=== PATIENT | male | born 1995 | race Caucasian/White ===

== ENCOUNTER → 2023-04-19 15:29 | Outpatient (CLI) | payer OTHER, SELFPAY ==
--- NOTE | 2023-04-19 15:29 | DI.US.S_ITS ---
PROCEDURE: US SCROTUM INDICATIONS: TESTICULAR PAIN TECHNIQUE: Real-time scanning was performed of the scrotum and testicles, with image documentation. Color and pulse Doppler interrogation was performed of both testicles. COMPARISON: None. FINDINGS: Right: Testicle is normal in size at 4.1 x 2.4 x 2.5 cm, and homogenous in echotexture. Epididymis is normal in overall size and morphology. No hydrocele or varicoceles. Overlying scrotal skin is normal in thickness. Left: Testicle is normal in size at 3.5 x 1.8 x 3.2 cm, and homogeneous in echotexture. Epididymis is normal in overall size and morphology. No hydrocele or varicoceles. Overlying scrotal skin is normal in thickness. Doppler: Color and pulse Doppler demonstrate normal and symmetric arterial flow in both testicles. IMPRESSION: Normal testicular ultrasound. Dictated by: Jarret Wu M.D. on 04/19/2023 at 17:13 Approved by: Jarret Wu M.D. on 04/19/2023 at 17:15
== END ==
PROVIDERS: PCP Family Medicine; Referring Provider Family Medicine; Visit Provider Family Medicine
DX: N50.812 Left testicular pain (principal)
CPT/HCPCS: 76870; 93975

== ENCOUNTER → 2024-07-14 16:04 | Outpatient (CLI) | payer OTHER, SELFPAY ==
[2024-07-16 20:07] LABS: Interpretation Negative (Negative)
== END ==
PROVIDERS: PCP Family Medicine; Referring Provider Family Medicine; Visit Provider Family Medicine
DX: Z20.9 Contact with and (suspected) exposure to unspecified communicable disease (principal)
CPT/HCPCS: 36415; 83013

== ENCOUNTER 2024-12-27 18:05 | Emergency (ER) | payer OTHER, SELFPAY ==
[2024-12-27 18:12] VITALS: BP 124/75; PULSE 106; RESP 16; TEMP 36.9; O2SAT 97; BMI 22.3
--- NOTE | 2024-12-27 18:23 | EKG_ITS ---
[facility] [address], [place] [address] Test Date: 2024-12-27 Pat Name: Maurisio Cornejo Department: [facility] Room: Gender: Male Billet Driller: SINGH WALLACE : 1995 Requested By: Order Number: [id number] Reading MD: Jarad Dimas MD Measurements Intervals [place] Rate: 99 P: 65 MS: 146 QRS: 87 QRSD: 90 T: 56 QT: 344 QTc: 441 Interpretive Statements Sinus rhythm with occasional premature ventricular complexes Electronically Signed On 12-28-2024 7:52:52 PDT by Jarad Dimas MD
--- NOTE | 2024-12-27 18:35 | DI.RAD.S_ITS ---
PROCEDURE: XR CHEST 1V INDICATIONS: Chest Pain TECHNIQUE: One view of the chest was acquired. COMPARISON: [facility], , CHEST 2 VIEW, 02/02/2015, 14:52. FINDINGS: Surgical changes and devices: None. Lungs and pleura: Lungs are clear. No pleural effusions or pneumothorax. Mediastinum: Mediastinal contours appear normal. Heart size is normal. Bones and chest wall: No suspicious bony lesions. Overlying soft tissues appear unremarkable. IMPRESSION: No acute cardiopulmonary abnormality is seen. Dictated by: Galileo Epps M.D. on 12/27/2024 at 19:24 Approved by: Galileo Epps M.D. on 12/27/2024 at 19:24
[2024-12-27 18:55] LABS: Add Manual Diff / Slide Review NO; Hematocrit 41.1 % (41-53); Hemoglobin 13.8 g/dL (13.5-17.5); Lymphocytes Absolute Auto 1600 /uL (1100-4500); Mean Corpuscular HGB Conc 33.6 % (30-36); Mean Corpuscular Hemoglobin 29.3 PG (26-34); Mean Corpuscular Volume 87.0 fL (80-100); Platelet Count 200 X10^3/uL (150-400)
[2024-12-27 19:01] LABS: INR 1.2 (0.9-1.3); Prothrombin Time 13.3 SECONDS (9.4-12.5)
[2024-12-27 19:02] LABS: Alanine Aminotransferase 18 IU/L (<50); Albumin 4.9 g/dL (3.5-5.0); Albumin Globulin Ratio 1.4 (1.0-2.8); Alkaline Phosphatase 47 U/L (38-126); Blood Urea Nitrogen 16 mg/dL (9-20); Calcium 9.7 mg/dL (8.4-10.2); Carbon Dioxide 28 mmol/L (22-32); Chloride 100 mmol/L (98-107); Creatine Kinase 47 U/L (55-170); Estimated Glomerular Filt Rate > 60 mL/min (>60); Globulin 3.4 g/dL (1.7-4.1); Glucose 102 mg/dL (70-99); HEMOLYSIS < 15 (0-50); Magnesium 1.7 mg/dL (1.6-2.3); Potassium 4.0 mmol/L (3.4-5.1); Sodium 137 mmol/L (137-145); Total Protein 8.3 g/dL (6.3-8.2)
[2024-12-27 19:03] LABS: PTT Partial Thromboplastin Tim 30 SECONDS (25.1-36.5)
[2024-12-27 19:14] LABS: NT-proBNP (BNP-Adult 18+) 25 pg/mL (<125); Troponin I < 0.012 ng/mL (0.01-0.034)
[2024-12-27 19:30] VITALS: BP 118/68; PULSE 90; RESP 13; O2SAT 100
[2024-12-27 20:00] VITALS: BP 108/67; PULSE 79; RESP 11; O2SAT 99
--- NOTE | 2024-12-27 20:19 | ED_ITS ---
HPI - Arrhythmia/Palpitations General Chief Complaint: Arrhythmia/Palpitations Stated Complaint: Irregular Heart Rhythm t-14, Shocked Himself Time Seen by Provider: 12/27/24 20:19 Source: patient Mode of arrival: Ambulatory History of Present Illness HPI narrative: Patient is a 29-year-old male without any significant past medical history comes into the ED from home for evaluation palpitations, the states it has been ongoing persistent for the past several months, he also states that he was working on a light switch and had a little ?shock to his hand, this did not change any of the symptoms, he denies any actual chest pain shortness breath, states that he is not having any chest pain shortness breath fever chills nausea vomiting abdominal pain or any other GI/ symptoms. Related Data Allergies Allergy/AdvReac Type Severity Reaction Status Date / Time No Known Drug Allergies Allergy Verified 12/27/24 18:12 Review of Systems Review of Systems Narrative: General: Denies fever, chills, weight loss HEENT: Denies headache, eye drainage, eye irritation, head trauma, sore throat, voice change Cardiovascular: Positive palpitation Denies any chest pain, tachycardia Respiratory: Denies any shortness of breath, cough, wheeze, stridor GI/: Denies any abdominal pain, nausea, vomiting, diarrhea, bright red blood per rectum, melanotic stools, urinary frequency, urinary retention, dysuria, hematuria MSK: Denies any joint pain, muscle pains, swelling Skin: Denies any rashes, lesions, discoloration Neuro: Denies any headache, lightheadedness, dizziness, fainting, weakness Psych: Denies SI/HI Patient History Medical History (Updated 12/27/24 @ 20:23 by Austin Narayanan DO) Left testicular pain Varicose vein of leg Darkening of skin Family history of Marfan syndrome Acne Surgical History Anesthesia [place] teeth removed (~2014) Family History Father Hypertension PTSD (post-traumatic stress disorder) Mother History of varicose veins Sister Marfan's syndrome Gestational diabetes Diabetes mellitus Grandfather Bladder cancer Grandmother Osteoporosis Grandfather History of heart disease Grandmother Stroke Social History alcohol intake: current (2-4 servings monthly) substance use type: does not use Smoking Status: Never smoker Exam Narrative Exam Narrative: General: Cooperative, well-developed, not in acute distress HEENT: Normocephalic, atraumatic, PERRLA, normal sclera, eyelids normal Neck: Active full range of motion, atraumatic Chest: Normal to inspection, negative crepitus, no overlying erythema ecchymosis Respiratory: Normal respiratory effort, not in acute respiratory distress, clear to auscultation bilaterally negative cough, wheeze, tachypnea, rhonchi, rales Cardiology: Regular rate rhythm negative gallop, murmur, rubs GI/: No tenderness to palpation, soft, non rigid, normal to inspection, exam deferred MSK: Full active range of motion in all 4 extremities, atraumatic, no tenderness to palpation of any bony prominences Skin: No rashes or lesions noted Neuro: Alert awake oriented x3, moves all 4 extremities spontaneously, cranial nerves intact, able to answer all questions appropriately follows commands appropriately Psych: Cooperative, negative suicidal or homicidal ideations Initial Vital Signs Initial Vital Signs: Vital Signs Temperature 98.4 F 12/27/24 18:12 Pulse Rate 106 H 12/27/24 18:12 Respiratory Rate 16 12/27/24 18:12 Blood Pressure 124/75 12/27/24 18:12 Pulse Oximetry 97 12/27/24 18:12 Oxygen Delivery Method Room Air 12/27/24 18:12 Course Orders Ordered: ED Orders 12/27/24 18:18 EKG-12 Lead Stat 12/27/24 18:35 XR chest 1V Stat 12/27/24 18:42 Complete Blood Count AUTO DIFF Stat Comprehensive Metabolic Panel Stat Magnesium Stat NT-proBNP (BNP-Adult 18+) Stat PTT Partial Thromboplastin Link Stat Prothrombin Time INR Stat Troponin & CK Cardiac Panel Stat 12/27/24 20:40 Trop I [Troponin I] Stat Discontinued Medications Aspirin (Aspirin 81 Mg Chew Tab) 324 mg PO NOW ONE Stop: 12/27/24 18:36 Last Admin: 12/27/24 19:53 Dose: Not Given Documented By: DEONTE Vital Signs Vital signs: Vital Signs - 8 hr 12/27/24 18:12 Temperature 98.4 F Pulse Rate 106 H Respiratory Rate 16 Blood Pressure 124/75 Pulse Oximetry 97 Oxygen Delivery Method Room Air MDM - Arrhythmia/Palpitations Differential Diagnosis Differential diagnosis: Likely palpitations, anxiety, sinus tachycardia, artial fibrillation, artial flutter, ventricular premature beats, supraventricular tachycardia and other (Pneumonia, electrolyte abnormality) Lab Data 12/27/24 18:42 12/27/24 18:42 Labs: Lab Results 12/27/24 Range/Units 18:42 WBC 5.7 (4.5-11.0) X10^3/uL RBC 4.72 (4.5-5.9) X10^6/uL Hgb 13.8 (13.5-17.5) g/dL Hct 41.1 (41-53) % MCV 87.0 (80-100) fL MCH 29.3 (26-34) PG MCHC 33.6 (30-36) % RDW 13.3 (11.6-14.8) % Plt Count 200 (150-400) X10^3/uL Neut % (Auto) 59.4 (50-75) % Lymph % (Auto) 28.8 (25-40) % [place] % (Auto) 9.9 (3-14) % Eos % (Auto) 0.8 L (2-4) % Baso % (Auto) 1.1 (0-2) % Neut # (Auto) 3400 (3035-7940) /uL Lymph # (Auto) 1600 (7907-9957) /uL [place] # (Auto) 600 (0-900) /uL Eos # (Auto) 0 (0-450) /uL Baso # (Auto) 100 (0-100) /uL PT 13.3 H (9.4-12.5) SECONDS INR 1.2 (0.9-1.3) APTT 30 (25.1-36.5) SECONDS Sodium 137 (137-145) mmol/L Potassium 4.0 (3.4-5.1) mmol/L Chloride 100 (98-107) mmol/L Carbon Dioxide 28 (22-32) mmol/L BUN 16 (9-20) mg/dL Creatinine 0.85 (0.66-1.25) mg/dL Estimated GFR > 60 (>60) mL/min BUN/Creatinine Ratio 18.8 (6-22) Glucose 102 H (70-99) mg/dL Calcium 9.7 (8.4-10.2) mg/dL Magnesium 1.7 (1.6-2.3) mg/dL Total Bilirubin 1.9 H (0.2-1.3) mg/dL AST 26 (17-59) IU/L ALT 18 (<50) IU/L Alkaline Phosphatase 47 (38-126) U/L Total Creatine Kinase 47 L (55-170) U/L Troponin I < 0.012 (0.01-0.034) ng/mL NT-Pro-B Natriuret Pep 25 (<125) pg/mL Total Protein 8.3 H (6.3-8.2) g/dL Albumin 4.9 (3.5-5.0) g/dL Globulin 3.4 (1.7-4.1) g/dL Albumin/Globulin Ratio 1.4 (1.0-2.8) Imaging Data Chest x-ray: Radiologist's Impresson: [address] [address] XRay Report Signed Patient: Maurisio Cornejo MR#: [id number] : 1995 Acct:[id number] Age/Sex: 29 / M Date of Service: 12/27/24 Loc: ED Accession Number: [id number] Procedure: XR chest 1V Ordering Provider: Austin Narayanan D.O. PROCEDURE: XR CHEST 1V INDICATIONS: Chest Pain TECHNIQUE: One view of the chest was acquired. COMPARISON: [facility], CHEST 2 VIEW, 02/02/2015, 14:52. FINDINGS: Surgical changes and devices: None. Lungs and pleura: Lungs are clear. No pleural effusions or pneumothorax. Mediastinum: Mediastinal contours appear normal. Heart size is normal. Bones and chest wall: No suspicious bony lesions. Overlying soft tissues appear unremarkable. IMPRESSION: No acute cardiopulmonary abnormality is seen. ECG Data Interpretation: EKG interpreted ED physician sinus 99 beats per minute QTC 441, QRS MN intervals within normal limits, occasional PVC noted, no STEMI MDM Narrative Medical decision making narrative: Patient is a 29-year-old male without any significant past medical history coming into the ED for evaluation of palpitations ongoing persistent for the past several weeks, states that he also had a electrical shock when he was working on a light switch day, this did not make any of his symptoms better or worse, he states that this was his reason to be further evaluated for his palpitations. Time of evaluation patient is not having any chest pain shortness breath fever chills nausea vomiting abdominal pain or any other GI/ symptoms. Patient's lab work unremarkable, troponin negative, EKG nonischemic in nature just noted occasional PVC, patient's chest x-ray without any acute cardiopulmonary abnormality, however given the fact that patient with occasional PVC and intermittent/persistent palpitations did instruct patient to follow up with the primary care as well as Cardiology in outpatient setting, he was given strict return precautions he verbalized understanding of this patient with a heart score of 0, patient agrees to being discharged home with outpatient follow up Discharge Plan Departure Patient Disposition: Home Clinical Impression: Palpitations Activity Restrictions/Additional Instructions: Please follow up with your primary care doctor as well as Cardiology in outpatient setting for continued evaluation treatment of your palpitation Please read the discharge instructions sheet carefully and bring all papers to all doctor follow-up visits, as it may contain information that your doctor may want to see. Disease processes change and evolve, if your symptoms worsen or if you develop any new symptoms that are concerning to you please return for evaluation. Your evaluation today does not show any evidence of any life- threatening/serious illnesses requiring admission to the hospital or surgery. Please follow-up with your doctor for re-evaluation in approximately 1 day. Seek immediate medical attention for any worrisome symptoms. *If you do not have a primary care provider please contact the [facility] Resource line at [phone]. They will ask some questions about your medical history and help get you set up with a doctor in the community. Referrals: Siva Lockett MD [Primary Care Provider, Family Practice] Rosanne Kwan MD [Physician, Cardiology] Referral Note: Palpitations Stand Alone Forms: Patient Portal/API
[2024-12-27 20:30] VITALS: BP 126/75; PULSE 97; RESP 14; O2SAT 99
== END 2024-12-27 20:58 | disposition home or self-care (01) ==
PROVIDERS: Emergency Provider Student in an Organized Health Care Education/Training Program; PCP Family Medicine
DX: R00.2 Palpitations (principal); R07.9 Chest pain, unspecified
CPT/HCPCS: 36415; 71045; 80053; 82550; 83735; 83880; 84484; 85025; 85610; 85730; 93005; 93010; 99283; 99284

== ENCOUNTER → 2025-02-23 16:49 | Outpatient (CLI) | payer OTHER, SELFPAY ==
[2025-02-23 17:29] LABS: HEMOLYSIS < 15 (0-50); Iron 95 ug/dL (49-181)
[2025-02-23 17:39] LABS: Percent Iron Saturation 29 % (20-50); Total Iron Binding Capacity 323 ug/dL (261-462); Transferrin 271 mg/dL (206-381)
[2025-02-23 17:48] LABS: Free T4, Direct Thyroxine 1.35 ng/dL (0.78-2.19)
[2025-02-23 18:01] LABS: Thyroid Stimulating Hormone 1.12 uIU/mL (0.47-4.68)
[2025-02-23 18:03] LABS: Ferritin 103 ng/mL (18-464)
== END ==
PROVIDERS: PCP Family Medicine; Referring Provider Family Medicine; Visit Provider Family Medicine
DX: R00.2 Palpitations (principal)
CPT/HCPCS: 36415; 82728; 83540; 83550; 84439; 84443

== ENCOUNTER → 2025-02-26 07:50 | Outpatient (CLI) | payer OTHER, SELFPAY | LOC: CAR 07:51 | PROVIDERS: PCP Family Medicine; Referring Provider Family Medicine; Visit Provider Family Medicine | DX: R00.2 Palpitations (principal) | CPT/HCPCS: 93246 ==

== ENCOUNTER → 2025-06-04 07:45 | Outpatient (CLI) | payer OTHER, SELFPAY ==
[2025-06-04 08:57] LABS: Vitamin D 25 Hydroxy (D3) 37.7 ng/mL (30.0-100.0)
[2025-06-04 09:09] LABS: Cortisol AM (Before 10AM) 9.86 ug/dL (4.46-22.7)
== END ==
PROVIDERS: PCP Family Medicine; Referring Provider Family Medicine; Visit Provider Family Medicine
DX: L65.9 Nonscarring hair loss, unspecified (principal)
CPT/HCPCS: 36415; 82306; 82533; 82627; 82642; 84402; 84403; 84630